=== PATIENT | female | born 1940 | race Caucasian/White ===

== ENCOUNTER 2018-05-16 15:29 | Inpatient (IN) | payer MEDICARE ==
[~2018-05-16] VITALS: Ht 152.4 cm; Wt 66.8 kg
[2018-05-16 16:11] LABS: BASOPHILS # (AUTO) 0.03 x10^3/uL (0-0.1); BASOPHILS % (AUTO) 0 % (0-1); EOSINOPHILS # (AUTO) 0.04 x10^3/uL (0-0.4); EOSINOPHILS % (AUTO) 0 % (1-7); LYMPHOCYTES # (AUTO) 0.69 x10^3/uL (1-3.4); LYMPHOCYTES % (AUTO) 9 % (22-44); MD NO; MEAN CORPUSCULAR HEMOGLOBIN 29.4 pg (27.0-34.8); MEAN CORPUSCULAR HGB CONC 32.8 g/dL (32.4-35.8); MEAN CORPUSCULAR VOLUME 89.7 fL (80-100); MEAN PLATELET VOLUME 8.3 fL (7.4-10.4); MONOCYTES # (AUTO) 0.44 x10^3/uL (0.2-0.8); MONOCYTES % (AUTO) 5 % (2-9); NEUTROPHILS # (AUTO) 6.97 x10^3/uL (1.8-6.8); NEUTROPHILS % (AUTO) 85 % (42-75); PLATELET COUNT 322 x10^3/uL (130-400); RED BLOOD COUNT 2.73 x10^6/uL (3.82-5.3); RED CELL DISTRIBUTION WIDTH 16.6 % (9.6-15.2)
[2018-05-16 16:18] LABS: INTERNATIONAL NORMALIZED RATIO 1.41 (0.93-1.1); PROTHROMBIN TIME 14.8 Seconds (9.6-11.5)
--- NOTE | 2018-05-16 16:18 | NUR ---
CONTACT WITH PT, 77 YR OLD FEMALE HERE WITH C/O, "I HAD THE SHAKES, LITTLE TREMOR LIKE THINGS, BLOODY NOSES REAL BAD THE LAST WEEK, REAL DIZZY HAS BEEN OVER THE LAST COUPLE OF DAYS. MY BACK HAS BEEN HURTING. I HAVE SOME CYSTS IN MY KIDNEYS
[2018-05-16 16:21] LABS: ALANINE AMINOTRANSFERASE 15 U/L (12-78); ALBUMIN 3.3 g/dL (3.4-5.0); ANION GAP 14 mmol/L (5-15); CALCIUM 8.6 mg/dL (8.5-10.1); CHLORIDE 110 mmol/L (98-107); CREATININE 7.15 mg/dL (0.55-1.02)
[2018-05-16 16:23] LABS: ALKALINE PHOSPHATASE 66 U/L (45-117); BILIRUBIN,TOTAL 0.3 mg/dL (0.2-1.0)
--- NOTE | 2018-05-16 16:28 | NUR ---
PT AWARE OF URINE SPECIMAN NEEDED, "I CANT GO RIGHT NOW"
[2018-05-16] MEDS ORDERED: SODIUM CHLORIDE 0.9% 1,000 ML IV SCH (17:20)
--- NOTE | 2018-05-16 17:25 | NUR ---
REPORT CALLED TO GWENDOLYN JOHN, POC DISCUSSED.
[2018-05-16] MEDS ORDERED: SODIUM POLYSTYRENE SULFONATE ORAL SUSP PO ONE (17:30)
[2018-05-16] MEDS ORDERED: INSULIN REGULAR 100 UNITS/ML, 3ML VIAL IVPush ONE (17:30)
[2018-05-16] MEDS ORDERED: ONDANSETRON 2MG/ML, 2ML IVPush PRN (17:30)
[2018-05-16] MEDS ORDERED: ACETAMINOPHEN 325 MG TABLET PO PRN (17:30)
[2018-05-16] MEDS ORDERED: ONDANSETRON ODT 4 MG PO PRN (17:30)
[2018-05-16] MEDS: SODIUM CHLORIDE 0.9% 1,000 ML IV SCH (17:30)
[2018-05-16] MEDS ORDERED: DEXTROSE 50%, 50ML SYRINGE IVPush ONE (17:30)
[2018-05-16] MEDS ORDERED: DEXTROSE 50%, 50ML SYRINGE ONE (18:03)
[2018-05-16] MEDS ORDERED: INSULIN REGULAR 100 UNITS/ML, 3ML VIAL ONE (18:04)
--- NOTE | 2018-05-16 18:12 | NUR ---
TASK RN: PT GIOVEN MEDICATIOSN FOR HIGH k+ AND IVF STARTED. PT TOLERATED WELL.
[2018-05-16 18:15] LABS: % IRON SATURATION 27 % (20-55); IRON LEVEL 81 mcg/dL (50-170); TOTAL IRON BINDING CAPACITY 303 mcg/dL (250-450)
[2018-05-16] MEDS ORDERED: FURO80TA77 PO (18:15)
[2018-05-16] MEDS ORDERED: EZET10TA18 PO (18:15)
[2018-05-16] MEDS ORDERED: FURO40TA6 PO (18:15)
[2018-05-16 18:18] LABS: TROPONIN I < 0.015 ng/mL (0.000-0.045)
[2018-05-16] MEDS ORDERED: RIVA20TA PO (18:19)
[2018-05-16] MEDS ORDERED: EXEN10PE3 SQ (18:19)
[2018-05-16] MEDS ORDERED: FEBU40TA PO (18:19)
[2018-05-16] MEDS ORDERED: GABA300C10 PO (18:19)
[2018-05-16] MEDS ORDERED: GLIP5TAB10 PO (18:19)
[2018-05-16] MEDS ORDERED: LEVO50TA5 PO (18:19)
[2018-05-16 18:26] LABS: HEMOGLOBIN A1C 5.8 % (4.2-6.3)
[2018-05-16] MEDS ORDERED: NIAC500C3 PO (18:46)
--- NOTE | 2018-05-16 19:08 | NUR ---
REPORT TO JULI JOHN.
--- NOTE | 2018-05-16 19:08 | NUR ---
REPORT RECEIVED AND CARE ASSUMED. PT UP TO BEDSIDE COMMODE AND UA COLLECTED AND SENT. REMAINS NSR ON MONITOR. VSS. IV FLUIDS INFUSING. CALL LIGHT IN REACH.
[2018-05-16] MEDS: INSULIN LISPRO 100 UNITS/ML, PEN SQ-INSULIN SCH (21:00)
[2018-05-16 23:24] LABS: TROPONIN I < 0.015 ng/mL (0.000-0.045)
[2018-05-17] VITALS (7 sets, daily range): BP systolic 92–118; BP diastolic 52–69
[2018-05-17] MEDS: SODIUM CHLORIDE 0.9% 1,000 ML IV SCH ×2 (00:24→09:02)
[2018-05-17 06:23] LABS: ANION GAP 11 mmol/L (5-15); CALCIUM 7.6 mg/dL (8.5-10.1); CHLORIDE 118 mmol/L (98-107)
[2018-05-17 06:50] LABS: MEAN CORPUSCULAR HEMOGLOBIN 29.5 pg (27.0-34.8); MEAN CORPUSCULAR HGB CONC 32.6 g/dL (32.4-35.8); MEAN CORPUSCULAR VOLUME 90.4 fL (80-100); MEAN PLATELET VOLUME 8.4 fL (7.4-10.4); PLATELET COUNT 261 x10^3/uL (130-400); RED BLOOD COUNT 2.27 x10^6/uL (3.82-5.3); RED CELL DISTRIBUTION WIDTH 16.5 % (9.6-15.2)
[2018-05-17 06:56] LABS: BASOPHILS # (AUTO) 0.02 x10^3/uL (0-0.1); BASOPHILS % (AUTO) 0 % (0-1); EOSINOPHILS # (AUTO) 0.15 x10^3/uL (0-0.4); EOSINOPHILS % (AUTO) 2 % (1-7); LYMPHOCYTES # (AUTO) 1.32 x10^3/uL (1-3.4); LYMPHOCYTES % (AUTO) 21 % (22-44); MD MORPH REVIEW ONLY; MONOCYTES # (AUTO) 0.64 x10^3/uL (0.2-0.8); MONOCYTES % (AUTO) 10 % (2-9); NEUTROPHILS # (AUTO) 4.09 x10^3/uL (1.8-6.8); NEUTROPHILS % (AUTO) 66 % (42-75)
[2018-05-17 07:00] LABS: ANISOCYTOSIS 1+
[2018-05-17] MEDS: INSULIN LISPRO 100 UNITS/ML, PEN SQ-INSULIN SCH ×4 (07:00→20:34)
[2018-05-17 07:01] LABS: <PLATELET ESTIMATE> ADEQUATE; <PLT MORPHOLOGY> NORMAL PLT MORPH; POLYCHROMASIA 1+
[2018-05-17] MEDS ORDERED: SODIUM BICARBONATE 8.4% 150 MEQ in DEXTROSE 5% 1,000 ML IV SCH (12:30)
[2018-05-17 13:16] LABS: MICROSCOPIC AUTO
[2018-05-17 13:38] LABS: CULTURE INDICATED? YES
[2018-05-17] MEDS: SODIUM BICARBONATE 8.4% 100 MEQ in DEXTROSE 5% 1,000 ML IV SCH (15:28)
[2018-05-17 16:26] LABS: OCCULT BLOOD POSITIVE (NEGATIVE)
[2018-05-17 16:41] LABS: FOLATE LEVEL > 20.0 ng/mL (3.1-17.5)
[2018-05-17] MEDS: CEFTRIAXONE PMX 1GM/50ML 50 ML IV SCH (17:33)
[2018-05-17] MEDS: GABAPENTIN 300 MG CAPSULE PO SCH (20:26)
[2018-05-18 00:59] VITALS: BP 103/58
[2018-05-18] MEDS: SODIUM BICARBONATE 8.4% 100 MEQ in DEXTROSE 5% 1,000 ML IV SCH ×2 (03:36→17:12)
[2018-05-18 06:40] LABS: ALBUMIN 2.5 g/dL (3.4-5.0); ANION GAP 13 mmol/L (5-15); CALCIUM 7.6 mg/dL (8.5-10.1); CHLORIDE 113 mmol/L (98-107)
[2018-05-18 06:44] LABS: ALANINE AMINOTRANSFERASE 13 U/L (12-78); ALKALINE PHOSPHATASE 51 U/L (45-117); BILIRUBIN,TOTAL 0.3 mg/dL (0.2-1.0); CREATININE 5.49 mg/dL (0.55-1.02); TOTAL PROTEIN 5.5 g/dL (6.4-8.2)
[2018-05-18] MEDS: INSULIN LISPRO 100 UNITS/ML, PEN SQ-INSULIN SCH ×4 (07:00→21:59)
[2018-05-18 07:59] VITALS: BP 96/60
[2018-05-18] MEDS: GABAPENTIN 300 MG CAPSULE PO SCH ×2 (08:19→21:59)
[2018-05-18] MEDS: LEVOTHYROXINE 75 MCG TABLET PO SCH (08:19)
[2018-05-18] MEDS: EZETIMIBE 10 MG TABLET PO SCH (08:19)
[2018-05-18] MEDS: PANTOPRAZOLE 40 MG IV IVPush SCH ×2 (08:19→21:59)
[2018-05-18] MEDS ORDERED: LEVOTHYROXINE 50 MCG TABLET PO SCH (09:00)
[2018-05-18] MEDS ORDERED: SODIUM BICARBONATE 8.4% 100 MEQ in DEXTROSE 5% 1,000 ML IV SCH (12:30)
[2018-05-18 14:00] VITALS: BP 98/61
[2018-05-18] MEDS: CEFTRIAXONE PMX 1GM/50ML 50 ML IV SCH (17:12)
[2018-05-18 19:44] VITALS: BP 100/63
[2018-05-18 20:44] LABS: OCCULT BLOOD POSITIVE (NEGATIVE)
[2018-05-19 01:45] VITALS: BP 97/66
[2018-05-19] MEDS: SODIUM BICARBONATE 8.4% 100 MEQ in DEXTROSE 5% 1,000 ML IV SCH (04:18)
[2018-05-19 05:01] LABS: BASOPHILS # (AUTO) 0.02 x10^3/uL (0-0.1); BASOPHILS % (AUTO) 0 % (0-1); EOSINOPHILS # (AUTO) 0.17 x10^3/uL (0-0.4); EOSINOPHILS % (AUTO) 2 % (1-7); LYMPHOCYTES % (AUTO) 18 % (22-44); MD NO; MEAN CORPUSCULAR HGB CONC 33.6 g/dL (32.4-35.8); MEAN CORPUSCULAR VOLUME 92.3 fL (80-100); MEAN PLATELET VOLUME 8.2 fL (7.4-10.4); MONOCYTES # (AUTO) 0.71 x10^3/uL (0.2-0.8); MONOCYTES % (AUTO) 10 % (2-9); NEUTROPHILS # (AUTO) 4.77 x10^3/uL (1.8-6.8); NEUTROPHILS % (AUTO) 69 % (42-75); PLATELET COUNT 235 x10^3/uL (130-400); RED BLOOD COUNT 2.61 x10^6/uL (3.82-5.3); RED CELL DISTRIBUTION WIDTH 16.2 % (9.6-15.2)
[2018-05-19 05:11] LABS: ALBUMIN 2.4 g/dL (3.4-5.0); ANION GAP 8 mmol/L (5-15); CALCIUM 7.7 mg/dL (8.5-10.1); CHLORIDE 112 mmol/L (98-107)
[2018-05-19] MEDS: LEVOTHYROXINE 75 MCG TABLET PO SCH (05:11)
[2018-05-19 05:14] LABS: ALANINE AMINOTRANSFERASE 11 U/L (12-78); ALKALINE PHOSPHATASE 47 U/L (45-117); BILIRUBIN,TOTAL 0.5 mg/dL (0.2-1.0); CREATININE 4.89 mg/dL (0.55-1.02); TOTAL PROTEIN 5.4 g/dL (6.4-8.2)
[2018-05-19] MEDS: INSULIN LISPRO 100 UNITS/ML, PEN SQ-INSULIN SCH ×4 (07:00→20:42)
[2018-05-19 08:00] VITALS: BP 105/74
[2018-05-19] MEDS: GABAPENTIN 300 MG CAPSULE PO SCH ×2 (08:04→20:41)
[2018-05-19] MEDS: PANTOPRAZOLE 40 MG IV IVPush SCH ×2 (08:04→20:01)
[2018-05-19] MEDS: EZETIMIBE 10 MG TABLET PO SCH (08:04)
[2018-05-19 12:52] VITALS: BP 123/71
[2018-05-19] MEDS ORDERED: ERGOCALCIFEROL 50,000 UNIT CAPSULE PO SCH (14:00)
[2018-05-19] MEDS: SODIUM CHLORIDE 0.9% 1,000 ML IV SCH (18:44)
[2018-05-19] MEDS: CEFTRIAXONE PMX 1GM/50ML 50 ML IV SCH (18:44)
[2018-05-19 20:07] VITALS: BP 120/70
[2018-05-20 01:06] VITALS: BP 97/58
[2018-05-20] MEDS: SODIUM CHLORIDE 0.9% 1,000 ML IV SCH (04:15)
[2018-05-20 05:12] LABS: BASOPHILS % (AUTO) 0 % (0-1); EOSINOPHILS # (AUTO) 0.14 x10^3/uL (0-0.4); EOSINOPHILS % (AUTO) 2 % (1-7); LYMPHOCYTES # (AUTO) 1.06 x10^3/uL (1-3.4); LYMPHOCYTES % (AUTO) 13 % (22-44); MD NO; MEAN CORPUSCULAR HEMOGLOBIN 30.9 pg (27.0-34.8); MEAN CORPUSCULAR HGB CONC 33.6 g/dL (32.4-35.8); MEAN PLATELET VOLUME 8.4 fL (7.4-10.4); MONOCYTES # (AUTO) 0.65 x10^3/uL (0.2-0.8); MONOCYTES % (AUTO) 8 % (2-9); NEUTROPHILS # (AUTO) 6.07 x10^3/uL (1.8-6.8); NEUTROPHILS % (AUTO) 77 % (42-75); PLATELET COUNT 224 x10^3/uL (130-400); RED BLOOD COUNT 2.54 x10^6/uL (3.82-5.3); RED CELL DISTRIBUTION WIDTH 16.8 % (9.6-15.2)
[2018-05-20 05:18] LABS: ALBUMIN 2.5 g/dL (3.4-5.0); ANION GAP 8 mmol/L (5-15); CHLORIDE 111 mmol/L (98-107)
[2018-05-20 05:22] LABS: ALANINE AMINOTRANSFERASE 12 U/L (12-78); ALKALINE PHOSPHATASE 51 U/L (45-117); BILIRUBIN,TOTAL 0.2 mg/dL (0.2-1.0); CREATININE 4.42 mg/dL (0.55-1.02); TOTAL PROTEIN 5.6 g/dL (6.4-8.2)
[2018-05-20] MEDS: LEVOTHYROXINE 75 MCG TABLET PO SCH (05:47)
[2018-05-20] MEDS: INSULIN LISPRO 100 UNITS/ML, PEN SQ-INSULIN SCH ×2 (07:00→11:00)
[2018-05-20 07:21] VITALS: BP 93/55
[2018-05-20] MEDS ORDERED: PHARMACY MAY ADJ FOR RENAL FX MC PRN (08:30)
[2018-05-20] MEDS: GABAPENTIN 300 MG CAPSULE PO SCH (08:47)
[2018-05-20] MEDS: EZETIMIBE 10 MG TABLET PO SCH (08:48)
[2018-05-20] MEDS ORDERED: AMOXICILLIN/CLAV 875-125MG TABLET PO SCH (09:00)
[2018-05-20] MEDS ORDERED: FEBUXOSTAT 40 MG TABLET PO SCH (09:00)
[2018-05-20] MEDS ORDERED: AMOXICILLIN/CLAV 500-125MG TABLET PO SCH (09:00)
[2018-05-20 12:49] VITALS: BP 114/72
[2018-05-20] MEDS ORDERED: LEVO75TA PO (14:06)
[2018-05-20] MEDS ORDERED: AMOX-367 PO (14:06)
[2018-05-20] MEDS ORDERED: FEBU40TA PO (14:06)
[2018-05-20] MEDS ORDERED: ERGO500017 PO (14:06)
== END 2018-05-20 16:29 | disposition home or self-care (01) | DRG 683 ==
LOC: ED 17:00 → EDIP 17:01 → ED 17:12 → 5SO 20:25
PROVIDERS: ADMIT Internal Medicine; ATTEND Internal Medicine
PROC: 30233N1 Transfusion of Nonautologous Red Blood Cells into Peripheral Vein, Percutaneous Approach (ICD-10-PCS; principal; 2018-05-17)
DX: N17.9 Acute kidney failure, unspecified (principal); D62 Acute posthemorrhagic anemia; E87.2 Acidosis; N39.0 Urinary tract infection, site not specified; R04.0 Epistaxis; N18.4 Chronic kidney disease, stage 4 (severe); I48.91 Unspecified atrial fibrillation; E11.21 Type 2 diabetes mellitus with diabetic nephropathy; E11.22 Type 2 diabetes mellitus with diabetic chronic kidney disease; E11.51 Type 2 diabetes mellitus with diabetic peripheral angiopathy without gangrene; E78.5 Hyperlipidemia, unspecified; E83.51 Hypocalcemia; E87.5 Hyperkalemia; E89.0 Postprocedural hypothyroidism; I12.9 Hypertensive chronic kidney disease with stage 1 through stage 4 chronic kidney disease, or unspecified chronic kidney disease; B96.20 Unspecified Escherichia coli [E. coli] as the cause of diseases classified elsewhere; Z82.0 Family history of epilepsy and other diseases of the nervous system; Z82.5 Family history of asthma and other chronic lower respiratory diseases; Z86.718 Personal history of other venous thrombosis and embolism; Z90.710 Acquired absence of both cervix and uterus
CPT/HCPCS: 0399T; 36415; 36430; 80048; 80053; 81001; 82272; 82306; 82607; 82746; 82962; 83036; 83540; 83550; 83690; 83970; 84443; 84484; 85014; 85018; 85025; 85610; 86850; 86900; 86923; 87040; 87077; 87086; 87186; 93005; 93306; 93970; 99285; G0378; J0696; J7070; C9113; J7030; P9016